=== PATIENT | male | born 1970 | race African-American/Black ===

== ENCOUNTER 2020-05-06 10:41 | Emergency (ER) | payer BC, MEDICAID ==
[~2020-05-06] VITALS: Ht 188 cm; Wt 100.0 kg
[2020-05-06] MEDS ORDERED: IBUPROFEN 800MG TABLET PO ONE (11:15)
[2020-05-06] MEDS ORDERED: METOCLOPRAMIDE HCL 10MG TABLET PO ONE (11:15)
[2020-05-06] MEDS ORDERED: TETANUS, DIPHTHERIA, PERTUSSIS VAC/PF 0.5ML (>7YR OLD) IM ONE (11:15)
[2020-05-06] MEDS ORDERED: LIDOCAINE HCL/EPINEPHRINE 1%-EPI 1:100,000 20 ML VIAL INFIL NR (11:15)
[2020-05-06] MEDS ORDERED: LIDOCAINE 1%/EPI 1:100,000 10 ML VIAL IJ ONE (11:15)
[2020-05-06 12:30] VITALS: BP 155/79
== END 2020-05-06 12:35 | disposition home or self-care (01) ==
LOC: ER 10:41
DX: S01.01XA Laceration without foreign body of scalp, initial encounter (principal); I10 Essential (primary) hypertension; W01.0XXA Fall on same level from slipping, tripping and stumbling without subsequent striking against object, initial encounter; Y93.89 Activity, other specified; Y92.89 Other specified places as the place of occurrence of the external cause; Y99.8 Other external cause status
CPT/HCPCS: 12001; 90471; 90715; 99283; J3490; J8597

== ENCOUNTER 2021-09-07 17:26 | Emergency (ER) | payer BC, MEDICAID ==
[~2021-09-07] VITALS: Ht 177.8 cm; Wt 94.0 kg
[2021-09-07 18:17] VITALS: BP 156/103
== END 2021-09-07 21:00 | disposition left against medical advice (07) ==
LOC: ER 17:26
DX: Z53.21 Procedure and treatment not carried out due to patient leaving prior to being seen by health care provider (principal)

== ENCOUNTER → 2021-12-16 | Outpatient (CLI) | payer BC, MEDICAID ==
[2021-12-16 09:51] LABS: BASOPHILS % 0.6 % (0.0-2.0); EOSINOPHILS % 8.4 % (0.0-5.0); HEMATOCRIT. 44.9 % (42.0-52.0); HEMOGLOBIN. 15.1 g/dL (14.0-18.0); LYMPHOCYTES % 25.1 % (20.0-50.0); MEAN CORPUSCULAR HEMOGLOBIN 29.7 pg (28.0-32.0); MEAN CORPUSCULAR VOLUME 88.4 fL (80.0-94.0); MEAN PLATELET VOLUME 7.1 fl (7.4-10.4); MONOCYTES % 14.7 % (2.0-8.0); NEUTROPHILS % 51.2 % (40.0-76.0); PLATELET 310 x1000/uL (130-400); RED BLOOD CELL COUNT 5.08 mill/uL (4.7-6.1); RED CELL DISTRIBUTION WIDTH 14.7 % (11.6-14.6)
[2021-12-16 10:01] LABS: CLARITY URINE CLEAR (CLEAR); COLOR URINE YELLOW (YELLOW); KETONES URINE TRACE (NEGATIVE); LEUKOCYTE ESTERASE URINE NEGATIVE (NEGATIVE); NITRITE URINE NEGATIVE (NEGATIVE); OCCULT BLOOD URINE NEGATIVE (NEGATIVE); PH URINE 5.5 (4.5-8.0); PROTEIN URINE NEGATIVE (NEGATIVE); SPECIFIC GRAVITY URINE 1.022 (1.005-1.030); UROBILINOGEN URINE 0.2 E.U./dL (0.2-1.0)
[2021-12-16 10:14] LABS: CHLORIDE 109 mEq/L (98-107)
[2021-12-16 10:19] LABS: PHOSPHORUS 2.7 mg/dL (2.5-4.9)
[2021-12-16 10:22] LABS: LDL CHOLESTEROL 173 mg/dL (5-100)
[2021-12-16 10:23] LABS: HDL CHOLESTEROL 48 mg/dL (40-59)
[2021-12-16 10:52] LABS: VITAMIN B12 SERUM 941 pg/mL (211-911)
[2021-12-16 14:42] LABS: HEPATITIS B SURFACE ANTIGEN NEGATIVE
[2021-12-16 15:09] LABS: FERRITIN 284 ng/mL (22-322); PROSTRATE SPECIFIC AG TOTAL 1.46 ng/mL (0.0-4.0)
== END | disposition home or self-care (01) ==
LOC: LAB 09:02
PROVIDERS: ATTEND Internal Medicine Geriatric Medicine
DX: Z00.01 Encounter for general adult medical examination with abnormal findings (principal); I10 Essential (primary) hypertension; Z11.59 Encounter for screening for other viral diseases; N39.0 Urinary tract infection, site not specified; Z12.5 Encounter for screening for malignant neoplasm of prostate; Z13.220 Encounter for screening for lipoid disorders; Z13.1 Encounter for screening for diabetes mellitus
CPT/HCPCS: 36415; 80053; 80061; 81003; 82306; 82607; 82728; 82746; 83036; 84100; 84153; 84443; 84550; 85025; 86592; 86705; 86709; 86803; 87340; G0103